=== PATIENT | male | born 1975 | race Caucasian/White ===

== ENCOUNTER 2017-06-03 08:18 | Day surgery (SDC) | payer BC ==
[2006-02-09 09:52] VITALS: BP 126/72
[~2017-06-03] VITALS: Ht 175.3 cm; Wt 92.3 kg
[~2017-06-03 08:18] MED LIST: ANTIVERT 25MG25 MG PO; DEPAKOTE ER 50500 MG PO; HALDOL 1MG T1 MG/TAB; HALDOL 1MG T1 MG/TAB PO; LAMICTAL ODT100 MG PO; LORTAB 5/500 501 TAB PO; MINOCIN 50M50 MG/CAP PO; NEXIUM 40MG40 MG PO; PERCOCET 325 MG1 TA2 PO; SEROQUEL 2525 MG/TAB PO; VALIUM 5MG T5 MG/TAB PO
[2017-06-03] MEDS ORDERED: DEXILANT60 MG PO (08:49)
[2017-06-03] MEDS ORDERED: LAMICTAL 100MG100 MG PO (08:50)
[2017-06-03] MEDS ORDERED: ALEVE 220MG220 MG PO (08:51)
[2017-06-03 09:22] VITALS: BP 134/90; PULSE 82; TEMP 97.6
[2017-06-03 10:05] VITALS: BP 129/84; PULSE 68
[2017-06-03 10:20] VITALS: BP 132/71; PULSE 61
[2017-06-03 10:35] VITALS: BP 111/62; PULSE 64
[2017-06-03 10:48] VITALS: BP 126/80; PULSE 74
== END 2017-06-03 10:45 | disposition home or self-care (01) ==
LOC: SDCO 08:18
DX: K29.50 Unspecified chronic gastritis without bleeding (principal); K21.9 Gastro-esophageal reflux disease without esophagitis; F17.210 Nicotine dependence, cigarettes, uncomplicated
CPT/HCPCS: J2250; J2704; J3010